=== PATIENT | female | born 1970 | race Asian ===

== ENCOUNTER 2017-11-16 08:53 | Day surgery (SDC) | payer OTHER ==
[2017-11-15 11:02] VITALS: BMI 25.7
[2017-11-16 09:38] VITALS: TEMP 98.3
[2017-11-16] MEDS ORDERED: ONDANSETRON 4 MG/2 ML VIAL ONE (13:52)
[2017-11-16] MEDS ORDERED: ONDANSETRON 4 MG/2 ML VIAL IVPB ONE (13:59)
[2017-11-16 15:53] VITALS: BP 117/77; PULSE 66
--- NOTE | 2017-11-22 14:45 | PATH ---
Surgical Pathology Report Patient Name: MICHAEL MAURICIO Med. Rec. #: [id number] /Age/Gender: 1970 (Age: 47) / F Account: [id number] Location: RADIOLOGY INTER Taken: 11/16/2017 Received: 11/16/2017 Reported: 11/22/2017 Physicians: Stevan Jenkins M.D. Specimen(s) Received LIVER BIOPSY Clinical History Abnormal LFTs with elevated YUSUF ? Autoimmune hepatitis Final Diagnosis LIVER, ULTRASOUND GUIDED CORE BIOPSY: CHRONIC, MODERATELY ACTIVE HEPATITIS. DIFFUSE STEATOSIS (20-25%), CONSISTENT WITH FATTY LIVER DISEASE. TRICHROME STAIN SHOWS PATCHY MILD PERIPORTAL FIBROSIS. RETICULIN STAIN SHOWS AN INTACT SINUSOIDAL ARCHITECTURE. IRON STAIN IS NEGATIVE FOR SIDEROSIS. NEGATIVE FOR CHOLESTASIS, CHOLANGITIS/BILE DUCT INJURY, GRANULOMAS, OR MALIGNANCY. SEE COMMENT. Comment: The biopsy shows a chronic, moderately active hepatitis with interface and lobular inflammatory activity and scattered acidophil bodies. The inflammatory infiltrate is mixed with numerous lymphocytes, scattered plasma cells, and rare eosinophils. The patient is noted to have a +YUSUF 1:1280 and is currently on a statin. The findings are compatible with an immune-mediated injury (type 1 autoimmune hepatitis versus statin or other drug/toxin induced hepatitis), provided that infectious etiologies are excluded. Fatty liver disease may be associated with diabetes mellitus, metabolic syndromes, obesity, medications, alcohol use, etc. Clinical and laboratory correlation recommended. This case was sent to Dr. Stefania Post, GI and liver specialist, from [facility], [place], [place], the diagnosis above reflects her opinion ([phone]). Electronically Signed Jacquelyn Pickering M.D. Gross Description Received in formalin labeled "liver biopsy," are 4 alva, cylindrical portions of soft tissue ranging from 0.6-1.6 cm in length and averaging 0.1 cm in diameter. The specimens are submitted in toto in one cassette. /11/16/201711/16/2017
== END 2017-11-16 16:30 | disposition home or self-care (01) ==
LOC: JRADIR 08:53
PROVIDERS: ATTEND Internal Medicine Gastroenterology
PROC: BF45ZZZ Ultrasonography of Liver (ICD-10-PCS; principal; 2017-11-16)
PROC: 0FB03ZX Excision of Liver, Percutaneous Approach, Diagnostic (ICD-10-PCS; 2017-11-16)
DX: K73.8 Other chronic hepatitis, not elsewhere classified (principal); K76.0 Fatty (change of) liver, not elsewhere classified
CPT/HCPCS: 76942-TC; 87899; 88307-TC; 88313-TC

== ENCOUNTER 2018-11-04 10:10 | Emergency (ER) | payer OTHER ==
[2018-11-04 10:28] VITALS: BP 130/81; PULSE 77; TEMP 98.2; BMI 29.2
[2018-11-04] MEDS ORDERED: KETOROLAC TROMETHAMINE 60 MG/2 ML VIAL IM ONE (11:19)
[2018-11-04] MEDS ORDERED: KETOROLAC TROMETHAMINE 60 MG/2 ML VIAL ONE (11:25)
--- NOTE | 2018-11-04 11:42 | PDOC ---
History of Present Illness - General Chief Complaint: Back Pain Stated Complaint: LOWER BACK PAIN Time Seen by Provider: 11/04/18 10:57 History Source: Patient Exam Limitations: No Limitations - History of Present Illness Initial Comments: 11/04/18 11:42 Patient here is here none assisting with interpretation -with complaints of low back and waistline back pain for the past few days. States approximately 2 weeks had an onset of tenderness but has progressively worsened to where yesterday had difficulty getting out of bed and standing sitting in chair. Denies fevers, denies nausea vomiting diarrhea or constipation. Denies numbness or tingling to hands or feet, has only taken Tylenol for pain relief Occurred: reports: yesterday Severity: reports: mild, moderate Pain Location: reports: back Method of Injury: Yes: unknown Modifying Factors: improves with: None Loss of Consciousness: no loss of consciousness Associated Symptoms (Fall): denies symptoms Past History - Travel Traveled outside of the country in the last 30 days: No Close contact w/someone who was outside of country & ill: No - Past Medical History Allergies/Adverse Reactions: Allergies Allergy/AdvReac Type Severity Reaction Status Date / Time No Known Drug Allergies Allergy Verified 11/04/18 10:28 Home Medications: Ambulatory Orders Enalapril Maleate 2.5 mg PO DAILY 11/06/17 Fenofibrate 54 mg PO DAILY 11/06/17 Levothyroxine [Synthroid -] 100 mcg PO DAILY 11/06/17 Republic-3 Fatty Acids/Fish Oil [Fish Oil 1,000 mg Capsule] 1 each PO DAILY metFORMIN HCL [Metformin HCl] 850 mg PO BID 11/06/17 Fenofibrate 48 mg PO DAILY 11/07/17 Fluticasone Prop 0.05% Nasal [Flonase -] 1 - 2 spray NS BID 11/07/17 Fluticasone/Salmeterol [Advair 250-50 Diskus] 1 each IH BID 11/07/17 Glipizide 5 mg PO DAILY 11/07/17 Loratadine [Claritin] 10 mg PO DAILY 11/07/17 Omeprazole 20 mg PO DAILY 11/07/17 Omeprazole Magnesium [Prilosec Otc] 20 mg PO DAILY 11/07/17 Simvastatin 20 mg PO DAILY 11/07/17 Cyclobenzaprine HCl 10 mg PO Q8H PRN #14 tablet 11/04/18 Naproxen [Naprosyn -] 500 mg PO BID #30 tablet 11/04/18 Anemia: No Asthma: No Cancer: No Cardiac Disorders: No CVA: No COPD: No CHF: No Dementia: No Diabetes: Yes GI Disorders: No Disorders: No HTN: Yes Hypercholesterolemia: Yes Liver Disease: Yes (fatty liver) Seizures: No Thyroid Disease: Yes - Suicide/Smoking/Psychosocial Hx Smoking History: Never smoked Have you smoked in the past 12 months: No Hx Alcohol Use: No Drug/Substance Use Hx: No Substance Use Type: None Hx Substance Use Treatment: No Review of Systems - Review of Systems Able to Perform ROS?: Yes Is the patient limited Icelandic proficient: Yes Constitutional: Yes: Symptoms Reported, See HPI, Malaise. No: Chills, Fever HEENTM: Yes: See HPI. No: Symptoms Reported Respiratory: Yes: See HPI Musculoskeletal: Yes: Symptoms Reported, See HPI, Back Pain, Muscle Pain Integumentary: No: Symptoms Reported All Other Systems: Reviewed and Negative *Physical Exam - Vital Signs Last Vital Signs Temp Pulse Resp BP Pulse Ox 98.2 F 77 14 130/81 100 11/04/18 10:25 11/04/18 10:25 11/04/18 10:25 11/04/18 10:25 11/04/18 10:25 - Physical Exam General Appearance: Yes: Nourished, Appropriately Dressed, Apparent Distress, Mild Distress HEENT: positive: ALDAIR, Normal ENT Inspection, TMs Normal, Pharynx Normal Neck: positive: Supple. negative: Tender Respiratory/Chest: positive: Lungs Clear. negative: Wheezing Musculoskeletal: positive: Normal Inspection, Decreased Range of Motion, Muscle Spasm (8/10 musculature of the paravertebral spinous muscles bilaterally, worse on the right than the left. No bone tenderness crepitus or step-offs, no deformity. Walks slowly secondary to the spasm.). negative: CVA Tenderness, Vertebral Tenderness Extremity: positive: Normal Capillary Refill, Normal Inspection, Normal Range of Motion Integumentary: positive: Normal Color, Dry, Warm Neurologic: positive: adobe architect II-XII NML intact, Fully Oriented, Alert, Normal Mood/ Affect, Normal Response, Motor Strength 5/5 Progress Note - Progress Note Progress Note: Low back strain, we'll treat with NSAIDs and cyclobenzaprine *DC/Admit/Observation/Transfer Diagnosis at time of Disposition: Low back strain Qualifiers: Encounter type: initial encounter Qualified Code(s): S39.012A - Strain of muscle, fascia and tendon of lower back, initial encounter - Discharge Dispostion Disposition: HOME Condition at time of disposition: Stable Decision to Admit order: No - Prescriptions Prescriptions: Cyclobenzaprine HCl 10 mg PO Q8H PRN #14 tablet PRN Reason: spasm Naproxen [Naprosyn -] 500 mg PO BID #30 tablet - Referrals Referrals: Raquel Oconnell MD [Primary Care Provider] - - Patient Instructions Printed Discharge Instructions: DI for Back Strain or Sprain Additional Instructions: Rest, no heavy lifting or exercise until pain is resolved Hot soaks to neck and low back as often as possible/hot showers or Jacuzzis No massage or therapy until spasm is gone Continue Naprosyn 500 mg tablet every 12 hours for the next 3 days then as needed for pain and swelling Cyclobenzaprine 1-10mg tab every 8 hours as needed for spasm If not significant improvement within 24 hours with medication and rest regime, followup with private physician for change in medications and /or therapy. - Post Discharge Activity
== END 2018-11-04 11:33 | disposition home or self-care (01) ==
LOC: JERFT 10:10
PROC: 3E0233Z Introduction of Anti-inflammatory into Muscle, Percutaneous Approach (ICD-10-PCS; principal; 2018-11-04)
DX: S39.012A Strain of muscle, fascia and tendon of lower back, initial encounter (principal); X58.XXXA Exposure to other specified factors, initial encounter; Y93.89 Activity, other specified; Y92.038 Other place in apartment as the place of occurrence of the external cause; Y99.8 Other external cause status; M62.830 Muscle spasm of back; I10 Essential (primary) hypertension; E11.9 Type 2 diabetes mellitus without complications; Z79.84 Long term (current) use of oral hypoglycemic drugs; E78.00 Pure hypercholesterolemia, unspecified; K76.0 Fatty (change of) liver, not elsewhere classified; E03.9 Hypothyroidism, unspecified
CPT/HCPCS: 96372; 99282-25

== ENCOUNTER 2020-01-28 19:58 | Observation (INO) | payer OTHER ==
[2020-01-28 20:15] VITALS: BMI 31.2
[2020-01-28] MEDS ORDERED: ONDANSETRON 4 MG/2 ML VIAL IVPUSH ONE (21:12)
[2020-01-28] MEDS ORDERED: FAMOTIDINE 20 MG/50 ML IVPB 20 MG/50 ML MG IVPB ONE ×2 (21:12→21:49)
[2020-01-28] MEDS ORDERED: SODIUM CHLORIDE 1,000 ML IV STA (21:17)
[2020-01-28 21:44] LABS: BASO % 0.6 % (0-2.0); EOS % 2.1 % (0-4.5); HEMATOCRIT 37.9 % (32.4-45.2); HEMOGLOBIN 12.3 GM/dL (10.7-15.3); LYMPH % 21.6 % (8-40); MCH 24.8 pg (25.7-33.7); MCHC 32.5 g/dl (32.0-36.0); MEAN CELL VOLUME 76.2 fl (80-96); MEAN PLT VOLUME 8.6 fl (7.5-11.1); MONO % 6.6 % (3.8-10.2); NEUT % 69.1 % (42.8-82.8); PLATELET COUNT 346 K/MM3 (134-434); RBC 4.97 M/mm3 (3.60-5.2); RDW 15.4 % (11.6-15.6); WHITE BLOOD COUNT 14.4 K/mm3 (4.0-10.0)
[2020-01-28 21:50] LABS: INR 0.97 (0.83-1.09); PROTHROMBIN TIME (PATIENT) 11.8 SEC (9.7-13.0)
[2020-01-28 21:53] LABS: ACTIVATED PTT 30.8 SECONDS (25.2-36.5)
[2020-01-28 22:07] LABS: CHLORIDE 95 mmol/L (98-107); POTASSIUM 4.4 mmol/L (3.5-5.1); SODIUM 127 mmol/L (136-145)
[2020-01-28 22:11] LABS: ALBUMIN 4.2 g/dl (3.4-5.0); ANION GAP 9 MMOL/L (8-16); BLOOD UREA NITROGEN 6.5 mg/dL (7-18); CALCIUM 9.7 mg/dL (8.5-10.1); CO2 23 mmol/L (21-32); GLUCOSE,RANDOM 109 mg/dL (74-106); MAGNESIUM 1.8 mg/dL (1.8-2.4)
[2020-01-28 22:14] LABS: CREATININE 0.6 mg/dL (0.55-1.3); PHOSPHOROUS 3.7 mg/dL (2.5-4.9); SGOT/AST 10 U/L (15-37); SGPT/ALT 23 U/L (13-61)
[2020-01-28 22:15] LABS: BILIRUBIN,TOTAL 0.6 mg/dL (0.2-1); TOT PROT 8.4 g/dl (6.4-8.2)
[2020-01-28 22:17] LABS: ALK PHOS 82 U/L (45-117)
[2020-01-28 22:19] LABS: N-TERMINAL BNP 54.3 pg/ml (5-125)
[2020-01-29] MEDS ORDERED: METOCLOPRAMIDE HCL INJECTION 10 MG/2 ML VIAL IVPUSH ONE (00:06)
[2020-01-29] MEDS ORDERED: METOCLOPRAMIDE HCL INJECTION 10 MG/2 ML VIAL ONE (00:09)
[2020-01-29] MEDS ORDERED: SODIUM CHLORIDE 1,000 ML IV SCH (01:00)
[2020-01-29 01:34] LABS: URINE APPEARANCE CLEAR; URINE BILIRUBIN NEGATIVE (NEGATIVE); URINE COLOR YELLOW; URINE GLUCOSE (UA) NEGATIVE (NEGATIVE); URINE KETONE NEGATIVE (NEGATIVE); URINE LEUK ESTERASE NEGATIVE (NEGATIVE); URINE NITRITE NEGATIVE (NEGATIVE); URINE PROTEIN NEGATIVE (NEGATIVE); URINE UROBILINOGEN 0.2 mg/dL (0.2-1.0)
[2020-01-29 06:07] LABS: HEMATOCRIT 36.5 % (32.4-45.2); HEMOGLOBIN 11.5 GM/dL (10.7-15.3); MCH 23.8 pg (25.7-33.7); MCHC 31.4 g/dl (32.0-36.0); MEAN CELL VOLUME 75.8 fl (80-96); MEAN PLT VOLUME 8.2 fl (7.5-11.1); PLATELET COUNT 332 K/MM3 (134-434); RBC 4.82 M/mm3 (3.60-5.2); RDW 15.5 % (11.6-15.6); WHITE BLOOD COUNT 11.7 K/mm3 (4.0-10.0)
[2020-01-29 06:17] LABS: CHLORIDE 103 mmol/L (98-107); POTASSIUM 4.5 mmol/L (3.5-5.1); SODIUM 135 mmol/L (136-145)
[2020-01-29 06:19] LABS: ANION GAP 6 MMOL/L (8-16); BLOOD UREA NITROGEN 4.8 mg/dL (7-18); CO2 27 mmol/L (21-32); GLUCOSE,RANDOM 110 mg/dL (74-106); MAGNESIUM 2.1 mg/dL (1.8-2.4)
[2020-01-29 06:22] LABS: CREATININE 0.6 mg/dL (0.55-1.3)
[2020-01-29] MEDS ORDERED: LEVOTHYROXINE NA 25 MCG TABLET (FP) ONE (06:42)
[2020-01-29] MEDS: INSULIN SLIDING SCALE (NOVOLOG) 1 VIAL SQ SCH ×2 (06:55→11:15)
[2020-01-29] MEDS ORDERED: LEVOTHYROXINE NA 100 MCG TABLET (FP) PO SCH (07:00)
[2020-01-29] MEDS ORDERED: BUDESONIDE/FORMETEROL FUMARATE 80/4.5 mcg INHALER IH SCH (10:00)
[2020-01-29] MEDS ORDERED: OMEGA-3 ACID ETHYL ESTERS (FATTY-ACIDS) 1 GM CAPSULE (FP) PO SCH (10:00)
[2020-01-29] MEDS ORDERED: ENALAPRIL MALEATE 2.5 MG TABLET PO SCH (10:00)
[2020-01-29] MEDS ORDERED: FENOFIBRIC ACID 45 MG CAP PO SCH (10:00)
[2020-01-29] MEDS ORDERED: LORATADINE 10 MG TABLET PO SCH (10:00)
[2020-01-29] MEDS ORDERED: PANTOPRAZOLE 20 MG TABLET PO SCH (10:00)
[2020-01-29] MEDS ORDERED: ENOXAPARIN NA (PORCINE) 40 MG/0.4 ML DISP.SYRIN SQ SCH (10:00)
[2020-01-29 16:22] VITALS: BP 134/78; PULSE 69; TEMP 98.5
[2020-01-29] MEDS ORDERED: ATORVASTATIN CA 10 MG TABLET (FP) PO SCH (22:00)
== END 2020-01-29 16:42 | disposition home or self-care (01) ==
LOC: JER 19:58 → JERBED 01-29 00:58
PROVIDERS: ADMIT Hospitalist; ATTEND Internal Medicine
PROC: 3E0337Z Introduction of Electrolytic and Water Balance Substance into Peripheral Vein, Percutaneous Approach (ICD-10-PCS; principal; 2020-01-29)
PROC: 3E033GC Introduction of Other Therapeutic Substance into Peripheral Vein, Percutaneous Approach (ICD-10-PCS; 2020-01-29)
PROC: 3E023GC Introduction of Other Therapeutic Substance into Muscle, Percutaneous Approach (ICD-10-PCS; 2020-01-29)
DX: E87.1 Hypo-osmolality and hyponatremia (principal); K76.0 Fatty (change of) liver, not elsewhere classified; E78.5 Hyperlipidemia, unspecified; I10 Essential (primary) hypertension; E11.9 Type 2 diabetes mellitus without complications; R07.9 Chest pain, unspecified; R11.2 Nausea with vomiting, unspecified; E07.9 Disorder of thyroid, unspecified; R51.9 Headache, unspecified; S39.012A Strain of muscle, fascia and tendon of lower back, initial encounter; X58.XXXA Exposure to other specified factors, initial encounter; Y93.89 Activity, other specified; Y92.89 Other specified places as the place of occurrence of the external cause; E66.8 Other obesity; Z68.31 Body mass index [BMI] 31.0-31.9, adult; R63.0 Anorexia
CPT/HCPCS: 36415; 70450-TC; 71046-TC-FY; 71260-TC; 74177-TC; 80048; 80053; 81003; 82550; 82962; 83735; 83880; 84100; 84439; 84443; 84484; 85025; 85027; 85610; 85730; 87086; 93005; 93010; 93306-TC; 96361; 96365; 96372; 96375; 99285-25; C9803; G0378; Q9967; U0003

== ENCOUNTER 2020-06-02 12:22 | Emergency (ER) | payer OTHER ==
[2020-06-02 12:32] VITALS: PULSE 94
[2020-06-02] MEDS ORDERED: BAMLANIVIMAB 700 MG, ETESEVIMAB 1,400 MG in SODIUM CHLORIDE 250 ML IVPB ONE (13:21)
[2020-06-02 13:58] LABS: BASO % 1.2 % (0-2.0); EOS % 1.7 % (0-4.5); HEMATOCRIT 39.2 % (32.4-45.2); HEMOGLOBIN 12.7 GM/dL (10.7-15.3); LYMPH % 26.1 % (8-40); MCH 24.1 pg (25.7-33.7); MCHC 32.4 g/dl (32.0-36.0); MEAN CELL VOLUME 74.6 fl (80-96); MEAN PLT VOLUME 8.7 fl (7.5-11.1); MONO % 10.7 % (3.8-10.2); NEUT % 60.3 % (42.8-82.8); PLATELET COUNT 304 K/MM3 (134-434); RBC 5.26 M/mm3 (3.60-5.2); RDW 16.1 % (11.6-15.6); WHITE BLOOD COUNT 6.7 K/mm3 (4.0-10.0)
[2020-06-02 14:14] LABS: POTASSIUM 4.9 mmol/L (3.5-5.1)
[2020-06-02 14:16] LABS: CALCIUM 9.4 mg/dL (8.5-10.1)
[2020-06-02 14:17] LABS: BLOOD UREA NITROGEN 7.6 mg/dL (7-18)
[2020-06-02 14:21] LABS: CREATININE 0.8 mg/dL (0.55-1.3)
[2020-06-02 15:14] VITALS: BMI 25.8
[2020-06-02 18:59] VITALS: BP 104/84; TEMP 98.2
== END 2020-06-02 18:59 | disposition home or self-care (01) ==
LOC: JCOVINFU 12:22
DX: U07.1 COVID-19 (principal)
CPT/HCPCS: 36415; 80048; 85025; 99284-25; M0239; Q0239; Q0245

== ENCOUNTER 2022-02-15 08:50 | Observation (INO) | payer OTHER ==
[2022-02-15 09:05] VITALS: BMI 26.4
[2022-02-15] MEDS ORDERED: ACETAMINOPHEN 1000 MG/100 ML BAG IVPB ONE (09:49)
[2022-02-15] MEDS ORDERED: METOCLOPRAMIDE HCL INJECTION 10 MG/2 ML VIAL IVPUSH ONE (09:49)
[2022-02-15] MEDS ORDERED: METOCLOPRAMIDE HCL INJECTION 10 MG/2 ML VIAL ONE (10:03)
[2022-02-15] MEDS ORDERED: ACETAMINOPHEN INJECTION 100 ML IVPB ONE (10:03)
[2022-02-15 10:23] LABS: BASO % 0.8 % (0-2.0); EOS % 0.3 % (0-4.5); HEMATOCRIT 33.4 % (32.4-45.2); HEMOGLOBIN 10.7 GM/dL (10.7-15.3); LYMPH % 11.1 % (8-40); MCH 22.5 pg (25.7-33.7); MCHC 32.2 g/dl (32.0-36.0); MEAN CELL VOLUME 69.9 fl (80-96); MEAN PLT VOLUME 7.8 fl (7.5-11.1); MONO % 14.9 % (3.8-10.2); NEUT % 72.9 % (42.8-82.8); PLATELET COUNT 353 10^3/uL (134-434); RBC 4.77 M/mm3 (3.60-5.2); RDW 17.5 % (11.6-15.6); WHITE BLOOD COUNT 6.3 K/mm3 (4.0-10.0)
[2022-02-15 10:43] LABS: ALBUMIN 3.7 g/dl (3.4-5.0)
[2022-02-15 10:44] LABS: BLOOD UREA NITROGEN 6.1 mg/dL (7-18)
[2022-02-15 10:46] LABS: CREATININE 0.6 mg/dL (0.55-1.3)
[2022-02-15 10:48] LABS: BILIRUBIN,TOTAL 0.4 mg/dL (0.2-1); TOT PROT 7.6 g/dl (6.4-8.2)
[2022-02-15] MEDS ORDERED: SODIUM CHLORIDE 0.9% 500 ML INFUS.BAG IV ONE (11:00)
[2022-02-15] MEDS ORDERED: ONDANSETRON 4 MG/2 ML VIAL IVPUSH PRN (16:38)
[2022-02-15] MEDS: SODIUM CHLORIDE 0.45% 1,000 ML IV SCH (17:36)
[2022-02-15] MEDS ORDERED: ACETAMINOPHEN 325 MG TABLET (FP) ONE (21:50)
[2022-02-15] MEDS: ACETAMINOPHEN 325 MG TABLET (FP) PO PRN (21:57)
[2022-02-16] MEDS ORDERED: ATORVASTATIN CA 40 MG TABLET (FP) ONE (05:49)
[2022-02-16] MEDS ORDERED: OSELTAMIVIR PHOSPHATE 75 MG CAPSULE ONE (05:49)
[2022-02-16] MEDS: ATORVASTATIN CA 20 MG TABLET (FP) PO SCH ×2 (05:49→22:14)
[2022-02-16] MEDS: OSELTAMIVIR PHOSPHATE 75 MG CAPSULE PO SCH ×4 (05:49→22:39)
[2022-02-16] MEDS: INSULIN (NOVOLOG) ASPART 100 UNITS/ML 10ML VIAL SQ SCH ×3 (08:29→17:24)
[2022-02-16] MEDS ORDERED: ACETAMINOPHEN 325 MG TABLET (FP) ONE (08:35)
[2022-02-16] MEDS: ACETAMINOPHEN 325 MG TABLET (FP) PO PRN (08:43)
[2022-02-16] MEDS ORDERED: IBUPROFEN 800 MG/8 ML IJ IVPB PRN (10:36)
[2022-02-16] MEDS: ENOXAPARIN NA (PORCINE) 40 MG/0.4 ML DISP.SYRIN SQ SCH (10:47)
[2022-02-16] MEDS: LEVOTHYROXINE NA 88 MCG TABLET (FP) PO SCH (10:47)
[2022-02-16] MEDS ORDERED: ALBUTEROL SO4 HFA INHALER IH PRN (10:56)
[2022-02-16] MEDS: ENALAPRIL MALEATE 5 MG TABLET PO SCH (11:31)
[2022-02-16] MEDS: methylPREDNISolone NA SUCC 40 MG/1 ML VIAL IVPUSH SCH ×2 (11:31→18:16)
[2022-02-16 14:14] LABS: CALCIUM 9.1 mg/dL (8.5-10.1)
[2022-02-16 14:16] LABS: BLOOD UREA NITROGEN 7.3 mg/dL (7-18)
[2022-02-16 14:17] LABS: CREATININE 0.6 mg/dL (0.55-1.3)
[2022-02-16] MEDS: SODIUM CHLORIDE 0.45% 1,000 ML IV SCH (17:25)
[2022-02-17] MEDS: SODIUM CHLORIDE 0.45% 1,000 ML IV SCH (00:50)
[2022-02-17] MEDS: methylPREDNISolone NA SUCC 40 MG/1 ML VIAL IVPUSH SCH ×2 (02:15→10:15)
[2022-02-17 06:27] VITALS: BP 164/99; PULSE 70; RESP 16; TEMP 98.2
[2022-02-17] MEDS: LEVOTHYROXINE NA 88 MCG TABLET (FP) PO SCH (06:28)
[2022-02-17] MEDS: INSULIN (NOVOLOG) ASPART 100 UNITS/ML 10ML VIAL SQ SCH ×2 (06:29→11:43)
[2022-02-17 09:25] LABS: BLOOD UREA NITROGEN 7.6 mg/dL (7-18); CALCIUM 9.6 mg/dL (8.5-10.1)
[2022-02-17 09:29] LABS: CREATININE 0.6 mg/dL (0.55-1.3)
[2022-02-17] MEDS: ENOXAPARIN NA (PORCINE) 40 MG/0.4 ML DISP.SYRIN SQ SCH (10:15)
[2022-02-17] MEDS: OSELTAMIVIR PHOSPHATE 75 MG CAPSULE PO SCH (10:32)
[2022-02-17] MEDS: ENALAPRIL MALEATE 5 MG TABLET PO SCH (11:08)
== END 2022-02-17 13:15 | disposition home or self-care (01) ==
LOC: JER 08:50 → UNDOADMOB 15:35 → INTOOBSV 15:35 → JERBED 15:35 → J6W 02-16 10:08 → JERBED 02-16 11:19
PROVIDERS: ADMIT Internal Medicine; ATTEND Internal Medicine
PROC: 3E013VG Introduction of Insulin into Subcutaneous Tissue, Percutaneous Approach (ICD-10-PCS; principal; 2022-02-16)
PROC: 3E023GC Introduction of Other Therapeutic Substance into Muscle, Percutaneous Approach (ICD-10-PCS; 2022-02-16)
PROC: 3E033GC Introduction of Other Therapeutic Substance into Peripheral Vein, Percutaneous Approach (ICD-10-PCS; 2022-02-16)
PROC: 3E0337Z Introduction of Electrolytic and Water Balance Substance into Peripheral Vein, Percutaneous Approach (ICD-10-PCS; 2022-02-16)
DX: J10.1 Influenza due to other identified influenza virus with other respiratory manifestations (principal); E11.9 Type 2 diabetes mellitus without complications; I10 Essential (primary) hypertension; M79.10 Myalgia, unspecified site; R51.9 Headache, unspecified; K76.0 Fatty (change of) liver, not elsewhere classified; E78.00 Pure hypercholesterolemia, unspecified; E03.9 Hypothyroidism, unspecified; R09.02 Hypoxemia; R07.9 Chest pain, unspecified; E87.1 Hypo-osmolality and hyponatremia
CPT/HCPCS: 0241U-QW; 36415; 70450-TC; 71045-TC-FY; 80048; 80053; 82962; 84484; 85025; 93005; 93010; 96372; 96374; 96375; 99285-25; G0378

== ENCOUNTER 2023-06-06 10:00 | Emergency (ER) | payer OTHER ==
[2023-06-06 10:07] VITALS: BP 142/89; PULSE 76; RESP 16; TEMP 98.9; BMI 24.7
[2023-06-06] MEDS ORDERED: ALBUTEROL SO4 2.5/IPRATROPIUM 0.5 INH SOL 3 ML VIAL.NEB. NEB ONE (11:31)
[2023-06-06] MEDS: ALBUTEROL SO4 2.5/IPRATROPIUM 0.5 INH SOL 3 ML VIAL.NEB. NEB SCH (11:41)
== END 2023-06-06 13:09 | disposition home or self-care (01) ==
LOC: JER 10:00
DX: R05.9 Cough, unspecified (principal); J02.9 Acute pharyngitis, unspecified; R50.9 Fever, unspecified; J40 Bronchitis, not specified as acute or chronic; Z20.822 Contact with and (suspected) exposure to COVID-19
CPT/HCPCS: 0241U-QW; 71046-TC-FY; 99284-25

== ENCOUNTER 2023-07-28 10:08 | Day surgery (SDC) | payer OTHER ==
[2023-07-28] MEDS: IRON SUCROSE COMPLEX 200 MG in SODIUM CHLORIDE 100 ML IVPB ONE (10:24)
[2023-07-28 15:07] VITALS: RESP 20; TEMP 98.3
[2023-07-28 15:09] VITALS: BP 114/71; PULSE 67
== END 2023-07-28 11:30 | disposition home or self-care (01) ==
LOC: JONCNONCHE 10:08 → J7W 10:11 → JONCNONCHE 11:30
PROVIDERS: ATTEND Internal Medicine Hematology & Oncology
PROC: 3E033GC Introduction of Other Therapeutic Substance into Peripheral Vein, Percutaneous Approach (ICD-10-PCS; principal; 2023-07-28)
DX: D50.9 Iron deficiency anemia, unspecified (principal)

== ENCOUNTER 2023-08-04 09:52 | Day surgery (SDC) | payer OTHER ==
[2023-08-04] MEDS: IRON SUCROSE COMPLEX 200 MG in SODIUM CHLORIDE 100 ML IVPB ONE (10:06)
[2023-08-04 16:54] VITALS: RESP 16; TEMP 98.3
[2023-08-04 16:56] VITALS: BP 113/85; PULSE 68
== END 2023-08-04 11:00 | disposition home or self-care (01) ==
LOC: JONCNONCHE 09:52 → J7W 09:53 → JONCNONCHE 11:00
PROVIDERS: ATTEND Internal Medicine Hematology & Oncology
PROC: 3E033GC Introduction of Other Therapeutic Substance into Peripheral Vein, Percutaneous Approach (ICD-10-PCS; principal; 2023-08-04)
DX: D50.9 Iron deficiency anemia, unspecified (principal)
CPT/HCPCS: 96365

== ENCOUNTER 2023-08-11 09:34 | Day surgery (SDC) | payer OTHER ==
[2023-08-11] MEDS: IRON SUCROSE COMPLEX 200 MG in SODIUM CHLORIDE 100 ML IVPB ONE (09:52)
[2023-08-11 11:40] VITALS: RESP 18; TEMP 98.3
[2023-08-11 11:44] VITALS: BP 109/73; PULSE 66
== END 2023-08-11 11:20 | disposition home or self-care (01) ==
LOC: JONCNONCHE 09:34 → J7W 09:35 → JONCNONCHE 11:20
PROVIDERS: ATTEND Internal Medicine Hematology & Oncology
PROC: 3E033GC Introduction of Other Therapeutic Substance into Peripheral Vein, Percutaneous Approach (ICD-10-PCS; principal; 2023-08-11)
DX: D50.9 Iron deficiency anemia, unspecified (principal)
CPT/HCPCS: 96365

== ENCOUNTER 2023-08-18 09:23 | Day surgery (SDC) | payer OTHER ==
[2023-08-18] MEDS: IRON SUCROSE INJECTION 200 MG in SODIUM CHLORIDE 100 ML IVPB ONE (09:49)
[2023-08-18 14:55] VITALS: RESP 16; TEMP 98.3
[2023-08-18 15:07] VITALS: BP 116/70; PULSE 63
== END 2023-08-18 10:45 | disposition home or self-care (01) ==
LOC: JONCNONCHE 09:23 → J7W 09:24 → JONCNONCHE 10:45
PROVIDERS: ATTEND Internal Medicine Hematology & Oncology
PROC: 3E033GC Introduction of Other Therapeutic Substance into Peripheral Vein, Percutaneous Approach (ICD-10-PCS; principal; 2023-08-18)
DX: D64.9 Anemia, unspecified (principal)
CPT/HCPCS: 96365; J1756